=== PATIENT | male | born 1980 ===

== ENCOUNTER 2017-07-10 10:38 | Emergency (ER) | payer OTHER ==
[2017-07-10 11:17] VITALS: BP 142/92; PULSE 100; RESP 20; TEMP 97; O2SAT 97
--- NOTE | 2017-07-10 11:30 | ED PDOC ---
HPI: Allergic Reaction Time Seen by Provider: 07/10/17 10:50 Chief Complaint (Nursing): Abnormal Skin Integrity Chief Complaint (Provider): Allergic reaction History Per: Patient History/Exam Limitations: no limitations Onset/Duration Of Symptoms: Days (1 month) Additional Complaint(s): Pt. with itching all over body. Started in the leg and has spread all over body and scalp. No pain. has rashes all over. No dyspnea, fever, cough. No congestion. No new food or drinks. No new lotion, exposure to anything. No leg pain, chest pain. Past Medical History Reviewed: Nursing Documentation, Vital Signs Vital Signs: Last Vital Signs Temp 97.0 F L 07/10/17 11:11 Pulse 100 H 07/10/17 11:11 Resp 20 07/10/17 11:11 BP 142/92 H 07/10/17 11:11 Pulse Ox 97 07/10/17 11:11 - Medical History PMH: No Chronic Diseases - Surgical History Surgical History: No Surg Hx - Family History Family History: States: Unknown Family Hx - Living Arrangements Living Arrangements: With Family - Social History Current smoker - smoking cessation education provided: No Alcohol: None Drugs: Denies - Home Medications Home Medications: Ambulatory Orders Medication Instructions Recorded DiphenhydrAMINE [Benadryl] 25 mg PO TID PRN 5 Days cap 07/10/17 Famotidine [Pepcid] 20 mg PO DAILY PRN #6 tab 07/10/17 predniSONE [predniSONE Tab] 20 mg PO BID 5 Days tab 07/10/17 - Allergies Allergies/Adverse Reactions: Allergies Allergy/AdvReac Type Severity Reaction Status Date / Time No Known Allergies Allergy Verified 07/10/17 11:10 Review of Systems Constitutional: Negative for: Fever, Chills, Weakness ENT: Negative for: Ear Pain, Nose Pain, Nose Congestion Cardiovascular: Negative for: Chest Pain Respiratory: Negative for: Cough, Shortness of Breath Musculoskeletal: Negative for: Neck Pain, Shoulder Pain, Arm Pain Skin: Positive for: Rash Neurological: Negative for: Weakness, Numbness Physical Exam - Reviewed Nursing Documentation Reviewed: Yes Vital Signs Reviewed: Yes - Physical Exam Appears: Positive for: Non-toxic, No Acute Distress Head Exam: Positive for: ATRAUMATIC. Negative for: NORMAL INSPECTION Skin: Positive for: Rash (forehead, frontal scalp, arms, legs, abd, chest, back : patches in erythema, blaching and scaling pattern; not raised; nontender; no fluctuance or dc: in urticarial pattern) Eye Exam: Positive for: Normal appearance, EOMI, PERRL ENT: Positive for: Normal ENT Inspection. Negative for: Nasal Congestion, Pharyngeal Erythema, Tonsillar Exudate Neck: Positive for: Painless ROM, Supple Cardiovascular/Chest: Positive for: Regular Rate, Rhythm, Chest Non Tender. Negative for: Edema Respiratory: Positive for: Normal Breath Sounds Gastrointestinal/Abdominal: Positive for: Soft. Negative for: Tenderness Back: Negative for: L CVA Tenderness, R CVA Tenderness Extremity: Positive for: Normal ROM. Negative for: Tenderness, Pedal Edema Neurologic/Psych: Positive for: Alert, Oriented - ECG O2 Sat by Pulse Oximetry: 97 Pulse Ox Interpretation: Normal - Progress ED Course And Treament: 1132: Stable. AAOx3. Chronic dermatitis. Kids and do not have same. Will rx steroids, benadryl pepcid. Fu with pcp. Disposition - Clinical Impression Clinical Impression: Dermatitis - Patient ED Disposition Is Patient to be Admitted: No Counseled Patient/Family Regarding: Diagnosis, Need For Followup, Rx Given - Disposition Referrals: [facility] [Outside] - 07/11/17 Disposition: Routine/Home Disposition Time: 11:33 Condition: STABLE Additional Instructions: Return if not better in 3 days. Prescriptions: DiphenhydrAMINE [Benadryl] 25 mg PO TID PRN 5 Days cap PRN Reason: Itching / Pruritus Famotidine [Pepcid] 20 mg PO DAILY PRN #6 tab PRN Reason: Pain predniSONE [predniSONE Tab] 20 mg PO BID 5 Days tab Instructions: Dermatitis (ED) Print Language: SENEGALESE
== END 2017-07-10 12:31 | disposition home or self-care (01) ==
LOC: H.ER 10:38
DX: L30.9 Dermatitis, unspecified (principal); T78.40XA Allergy, unspecified, initial encounter

== ENCOUNTER 2018-02-11 22:19 | Emergency (ER) | payer SELFPAY ==
[2018-02-11 23:10] VITALS: BP 147/89; PULSE 79; RESP 18; TEMP 98.3; O2SAT 97
[2018-02-11] MEDS ORDERED: PROPARACAINE/FLUORESCEIN SOD 100 DROP/5 ML BOTTLE OS STA (23:19)
--- NOTE | 2018-02-11 23:57 | ED PDOC ---
HPI: Eye Injury/Pain Time Seen by Provider: 02/11/18 23:15 Chief Complaint (Nursing): Eye Problem History Per: Patient Additional Complaint(s): Pt. states earlier today at work he was using a nail gun which cocked back and struck him in the L eye. Reports he was initially seen in [facility] [place] he had a CT done and was prescribed naproxen and percocet. He was also given while in the ED atropine, prednisolone, and cipro eye drops. Also states he has a scheduled appointment with the eye doctor tomorrow at 0900. Pt's family became concerned as after he got discharged from the hospital he still had pain. States they did not fill Rx of naproxen and percocet. Also states he was given and IV pain medication which made him nauseous. Denies LOC, headache, fever. Past Medical History Reviewed: Historical Data, Nursing Documentation, Vital Signs Vital Signs: Last Vital Signs Temp 98.3 F 02/11/18 23:08 Pulse 79 02/11/18 23:08 Resp 18 02/11/18 23:08 BP 147/89 02/11/18 23:08 Pulse Ox 97 02/11/18 23:08 - Family History Family History: States: No Known Family Hx - Home Medications Home Medications: Ambulatory Orders Medication Instructions Recorded DiphenhydrAMINE [Benadryl] 25 mg PO TID PRN 5 Days cap 07/10/17 Famotidine [Pepcid] 20 mg PO DAILY PRN #6 tab 07/10/17 predniSONE [predniSONE Tab] 20 mg PO BID 5 Days tab 07/10/17 - Allergies Allergies/Adverse Reactions: Allergies Allergy/AdvReac Type Severity Reaction Status Date / Time No Known Allergies Allergy Verified 02/11/18 23:07 Review of Systems ROS Statement: Except As Marked, All Systems Reviewed And Found Negative Eyes: Positive for: Pain, Conjunctivae Inflammation Physical Exam - Physical Exam Appears: Positive for: Well, Non-toxic, No Acute Distress Head Exam: Positive for: ATRAUMATIC, NORMAL INSPECTION, NORMOCEPHALIC Skin: Positive for: Normal Color, Warm. Negative for: Rash Eye Exam: Positive for: EOMI, PERRL, Conjunctival injection (L eye conjunctival injection; fluoroscein uptake at the bottom portion of the L cornea; R eye WNL) , Other (no hyphema). Negative for: Periorbital swelling, Periorbital tenderness Neurologic/Psych: Positive for: Alert, Oriented (x3), Gait (steady, unassisted) . Negative for: Aphasia, Facial Droop - ECG O2 Sat by Pulse Oximetry: 97 - Progress ED Course And Treament: Advised to f/u with eye doctor tomorrow as scheduled without fail. Tetracaine 2 drops in L eye given which provided good analgesia. Also told to continue all medications as prescribed. Disposition - Clinical Impression Clinical Impression: Corneal abrasion - Patient ED Disposition Is Patient to be Admitted: No - Disposition Disposition: Routine/Home Disposition Time: 23:59 Condition: IMPROVED Additional Instructions: GO TO THE EYE DOCTOR TOMORROW WITHOUT FAIL TAKE YOUR MEDICATIONS PRESCRIBED Instructions: Corneal Abrasion (DC) Print Language: SUDANESE
== END 2018-02-12 00:09 | disposition home or self-care (01) ==
LOC: H.ER 22:19
DX: S05.02XA Injury of conjunctiva and corneal abrasion without foreign body, left eye, initial encounter (principal); W29.4XXA Contact with nail gun, initial encounter; Y99.0 Civilian activity done for income or pay